=== PATIENT | female | born 1950 | race Caucasian/White ===

== ENCOUNTER 2025-01-05 12:36 | Outpatient (AMB) | payer MEDICARE, OTHER, SELFPAY ==
--- NOTE | 2025-01-05 13:13 | A.SPINEOV_ITS ---
Vital Signs 01/05/25 13:14 Height 5 ft 5 in Weight 143 lb BMI 23.8 Intake Visit Reasons: Synovial Cyst Intake Note: Ms. Murray is here today c/o a Synovial Cyst on her Lumbar spine. Director Of Personnel Required: No Allergies loperamide Allergy (Severe, Verified 01/05/25 13:15) Rash Assessment & Plan Assessment & Plan (1) Synovial cyst of lumbar facet joint: Code(s): M71.38 - Other bursal cyst, other site Category: Medical (2) Lumbar back pain with radiculopathy affecting left lower extremity: Code(s): M54.16 - Radiculopathy, lumbar region Category: Medical Plan Dear colleague Thank you for referring Ashwini Murray to the office today with a chief complaint of left sciatica. HPI: This 74-year-old female developed severe left-sided leg pain that radiates from the buttock to the lateral side of her left leg, lateral ankle. An MRI showed a synovial cyst compressing the left L5 nerve root. She had the synovial cyst aspirated on 12/06/2024 which gave her temporary relief. Then the symptoms returned to baseline. The pain affect her lifestyle. Twisting of her back produces pain in the left leg. She can no longer do a daily workouts. She is still in physical therapy, which is not helping. The right side is unaffected. No weakness. She does have numbness on the top of her foot and 1st 3 toes. The following conservative treatment options were tried without success antiinflammatories, tylenol, physical therapy, cortisone shots PMH: Hypertension, vcvh-ho-ratizacv mitral and tricuspid all valve insufficiency Medications: Losartan, amlodipine, Celebrex, gabapentin at night, Tylenol 2 tabs t.i.d. p.r.n. pain Allergies: Loperamide Social history: . Retired nurse practitioner Physical Exam: Pleasant female height 5'5 weight 143 lb. There is numbness the dorsum and 1st 3 toes of her left foot. No motor deficits. Reflexes are intact. Straight leg raise produces pain on the lateral side of her left lower leg. Radiological Studies: MRI lumbar spine done at [place] on 11/16/2024 shows moderate L4-5 spinal stenosis but more importantly there is a synovial cyst compressing the left L5 nerve root. A standing x-ray of the lumbar spine fortunately shows no gross instability . Impression/Plan: This patient is suffering from a left L5 radiculopathy caused by a synovial cyst. She tried conservative management, including aspiration of the cyst. Treatment is surgically. The options are to remove the synovial cyst with or without a lumbar fusion. The x-ray shows no gross instability and therefore I offered her a removal of the synovial cyst only. She is scheduled for 01/30/2025. Thank you for allowing me to participate in your patients care. total time spent was 50 minutes in counseling ,coordination of plan, personal review of imaging, surgical decision making and subsequent plan Chuck Conley MD, PhD Spine Fellowship Trained Neurosurgeon Director, [facility] Coding Level of Care Code New Pt Level 4 (66696) Diagnoses Synovial cyst of lumbar facet joint M71.38 Lumbar back pain with radiculopathy affecting left lower extremity M54.16
[2025-01-05 13:14] VITALS: BMI 23.8
--- OUTSIDE RECORDS SUMMARY | 2025-01-05 14:49 | XMS_ITS | Encounter Summary ---
Author Organization [facility] Address [address] [place] [address] Phone Care Team Providers Care Cabinet Worker Name Role Phone Aurora Yoo Primary Care Provider [phone] Alessandro Rice MD Primary Care Provider [phone] Encounter Details Date Type Department Care Team (Late st Contact Info) Description 02/15/2024 Procedure Pass [facility] PER[facility]IVE [facility]PT [address] [place] [id number] Social History Tobacco Use Types Packs/Day Years Used Date Smoking Tobacco: Never Smokeless Tobacco: Never Alcohol Use Standard Drinks/Week Comments Yes 0 (1 standard drink = 0.6 oz pur e alcohol) 2x weekly Education Answer Date Recorded Are you interested in more education? Not on carlos e 07/05/2022 Are you concerned about learning? Not on file 07/05/2022 No 07/05/2022 No 07/05/2022 Digital Access Answer Date Recorded No 07/26/2022 No 07/26/2022 Reliable internet access at home? Not on file 07/26/2022 Device with a working camera? Not on file Comments No Sex and Gender Information Value Date Recorded Sex Assigned at Female 08/25/2021 12:44 PM EDT Legal Sex Female 10:35 AM EDT Gender Identity Female 08/25/2021 12:44 PM EDT Sexual Orientation Straight 08/25/2021 12 :44 PM EDT documented as of this encounter Plan of Treatment Not on file documented as of this encounter Visit Diagnoses Not on filedocumented in this encounter Additional Health Concerns Assessment Noted Time PHQ-2 Depression Total Score: 0 06/10/19 23 10:06 AM EDT documented as of this encounter Care Teams Cabinet Worker Relationship Specialty Start Date End Date Aurora Yoo PA [address] [place] [address] PCP - General Unknown Provider Specialty 04/19/18 Alessandro Rice MD [address] [facility] [address] [place] [address] PCP - General Internal Medicine 03/22/24 documented as of this encounter Additional Source Comments The information contained in this document represents components of the legal health record. It is not the complete legal health record.[facility]
--- OUTSIDE RECORDS SUMMARY | 2025-01-05 14:49 | XMS_ITS | Clinical Summary ---
Author Organization [facility] Address [address] [place] [id number] Phone Care Team Providers Care Hepatologist Name Role Phone Alessandro Rice MD Primary Care Provider [phone] Allergies Active Allergy Reactions Criticality Noted Date Comments Loperamide Rash Low 05/13/2022 Medications losartan (COZAAR) 100 MG tablet Take 1 tablet by mouth daily. 1 Active ascorbic acid (REYNOLD-C ORAL) Active cholecalciferol (VITAMIN D3) 2,000 unit capsule Take 50 mcg by mouth. 1 Active VITAMIN K2 ORAL 100 mcg. Acti ve zolpidem (AMBIEN) 5 MG tablet Active psyllium husk (METAMUCIL ORAL) 2 teaspoonful. Activ e amLODIPine (NORVASC) 2.5 MG tablet Take 2.5 mg by mouth daily. Active oxyquinoline-so d.lauryl sulfat 0.025-0.01 % Gel Apply 1/2 applicator of Trimo-Tate gel twice per week. 113.4 g 3 5 Active estradioL (ESTRACE) 0.01 % (0.1 mg/gram) vaginal cream Place 1 g vaginally 3 (three) times a week. 42.5 g 1 5 09/30/19 26 Active Active Problems Problem Noted Date Diagnosed Date Diverticular disease 05/13/2022 Vaginal dryness 05/13/2022 Impaired fasting glucose 07/31/2021 Insomnia 07/31/2021 Osteoporosis 07/31/2021 Hypertension 04/17/2020 Overview (09/09/2023): Last Assessment & Plan: Of pressure slightly elevated today. We had tried increasing her medical therapy at last visit with some amlodipine which caused some edema. Patient states that her pressure is normal outside of our office notes plans on changing therapy at this time Last Assessment & Plan: Patient contacted us earlier this year with concerns over elevated blood pressure we reinstituted amlodipine on top of her losartan she is having no side effects of edema as she had in the past and her blood pressure is very well controlled on the combination of amlodipine and losartan Mitral regurgitation 04/17/2020 Overview (05/13/2022): Last Assessment & Plan: Patient with moderate mitral insufficiency no murmurs appreciated on exam though echo shows preserved left ventricular systolic function without decrease. Patient said no chest pain or pressure no shortness of breath. Will plan on repeating an echocardiogram in about a year Palpitations 04/17/2020 Overview (05/13/2022): Last Assessment & Plan: Patient complains of some palpitations. There is sinus rhythm today. They are infrequent. I asked her to contact us if the frequency increases because then we have a better chance of capturing them on a recording device. She has been told to call us if they become more frequent and we can set up an outpatient monitor. The right now the frequency is so minimal that it would be of minimal benefit of us monitoring her now Women's annual routine gynecological examination 09/15/2019 Sebaceous cyst 09/15/2019 Menopause syndrome 04/19/2018 Osteopenia 04/19/2018 Vaginal atrophy 03/12/2017 Female cystocele 03/12/2017 Encounters Date Type Department Care Team Description 11/28/2024 2:00 PM EDT Telemedicine Urogynecology and Reconstructive Pelvic Surgery [address] [facility], [address] [place] [id number] Socorro Heller, ARIELA Incomplete uterovaginal prolapse (Primary Dx); Pessary maintenance from Last 3 Months Immunizations Immunization Administration Dates Next Due INFLUENZA, SPLIT VIRUS, TRIVALENT PF 12/13/2014 INFLUENZA, SPLIT VIRUS, TRIV ALENT W/ PRESERVATIVE IM 11/22/2017 Influenza High-Dose Quadriva lent Preservative Free IM 12/11/2022,12/24/2021,12/03/2020 Influenza High-Dose Trivalen t Preservative Free IM 12/05/2018 Influenza Quadrivalent Adjuv anted Preservative Free IM 11/16/2019 Influenza Quadrivalent Prese rvative Free IM 12/10/2016 Influenza, Unspecified Formulation 12/24,12/03/2020,11/16/2019,12/10,12/13/2014 Influenza, whole 12/05/2018 Pneumococcal conjugate PCV13 12/20/2017 Pneumococcal polysaccharide PPSV23 06/14/2014 Tdap 06/14/2014 Zoster live 06/22/2013 Zoster recombinant 01/10/2020,11/01/2019 Family History Medical History Relation Comments Hypertension Father Stroke Father Hypothyroidism Mother Relation Status Comments Father Mother Social History Tobacco Use Types Packs/Day Years Used Date Smoking Tobacco: Never Smokeless Tobacco: Never Tobacco Cessation:Counseling Given: Not Answered Alcohol Use Standard Drinks/Week Comments Yes 0 [...] Orientation Straight 08/25/2021 12 :44 PM EDT Last Filed Vital Signs Vital Sign Reading Time Taken Comments Blood Pressure 100/70 03/22/2024 10:09 AM EST Pulse 78 11/30/2023 9:00 AM EDT Temperature 36.8 C (98.2 F) 03/19/2023 10:05 AM EST Respiratory Rate 16 03/19/2023 10:05 AM EST Oxygen Saturation 98% 03/19/2023 10:05 AM EST Inhaled Oxygen Concentration - - Weight 65.9 kg (145 lb 4.8 oz) 09/08/2024 8:32 A M EDT Height 165.1 cm (5' 5 ) 09/08/2024 8:32 AM EDT Body Mass Index 24.18 09/08/2024 8:32 AM EDT Plan of Treatment Health Maintenance Due Date Last Done Comments CREATININE LEVEL 1952 LIPID PANEL 1952 POTASSIUM LEVEL 1952 HEPATITIS C SCREENING 1970 MAMMOGRAM 1992 COLOGUARD 1997 COLONOSCOPY 1997 COLORECTAL CANCER SCREENING 1997 FIT TEST 1997 FOBT 1997 SIGMOIDOSCOPY 1997 VIRTUAL COLONOSCOPY 1997 OSTEOPOROSIS SCREENING INITIAL (ONE-TIME) 2017 PNEUMOCOCCAL VACCINES (50+ years) (3 of 3 - PCV20 or PCV21) 12/20/2022 12/20/2017, 06/14/2014 Adult Td,Tdap Booster 06/14/2024 06/14/2014 BLOOD PRESSURE 09/19/2024 03/22/2024 INFLUENZA VACCINE (#1) 2024 , 12/11/2022, 12/24/2021, Additional history exists COVID-19 VACCINE ( - 2024- season) 2024 12/30/2020, 04/16/2020, 03/19/2020 DEPRESSION SCREENING 07/11/2025 07/11/2024 RSV VACCINE (1 - 1-dose 75+ series) 06/22/2027 ZOSTER VACCINES Completed 01/10/2020, 04/2019, 06/22/2013 SMOKING STATUS SCREENING (Once After 26 Yrs) Completed 11/30/2023 HEPATITIS A VACCINES Aged Out No long er eligible based on patient's age to complete this topic HIB VACCINES Aged Out No longer eligi ble based on patient's age to complete this topic MENINGOCOCCAL VACCINES (ACWY) Aged Out No longer eligible based on patient's age to complete this topic MENINGOCOCCAL VACCINES (B) Aged Out N o longer eligible based on patient's age to complete this topic Medical Devices Not on file Insurance MEDICARE PART A & B delicious MEDICARE SUPPLEMENT MEDICARE PART A & B delicious MEDICARE SUPPLEMENT MEDICARE PART A & B Member Subscriber Plan / Payer ( fective 2017-) Name:Miranda Murray Member ID:[id number] Relation to Subscriber:Self Name:Miranda Murray Subscriber ID:[id number] Payer ID:[id number] Group ID:Not on file Type:Medicare Address: [employer] [facility].[address] [address] [facility] MEDICARE SUPPLEMENT MEDICARE PART A & B [facility] MEDICARE SUPPLEMENT MEDICARE PART A & B Member Subscriber Plan / Payer ( fective 2017-Present) Name:Trevor Miranda Saul Member ID:[id number] Relation to Subscriber:Self Name:Miranda Murray Saul Subscriber ID:[id number] Payer ID:[id number] Group ID:Not on file Type:Medicare Address: [employer] [address] [facility] MEDICARE SUPPLEMENT MEDICARE PART A & B [employer] MEDICARE SUPPLEMENT ([place]) [place] [address] MEDICARE PART A & B MEDICARE SUPPLEMENT MEDICARE PART A & B Room n House [employer] MEDICARE SUPPLEMENT [place] [phone] MEDICARE PART A & B [employer] MEDICARE SUPPLEMENT Care Teams Hepatologist Relationship Specialty Start Date End Date Alessandro Rice MD [address] [place] [address] PCP - General Internal Medicine 03/22/24 Additional Source Comments The information contained in this document represents components of the legal health record. It is not the complete legal health record.[facility]
== END 2025-01-05 13:49 | disposition home or self-care (01) ==
LOC: HO.HNS 12:37
PROVIDERS: PCP Internal Medicine; Visit Provider Neurological Surgery
DX: M71.38 Other bursal cyst, other site (principal); M54.16 Radiculopathy, lumbar region
CPT/HCPCS: 99204

== ENCOUNTER → 2025-01-05 12:36 | Outpatient (BNVA) | payer MEDICARE, OTHER, SELFPAY | PROVIDERS: PCP Internal Medicine; Visit Provider Neurological Surgery | DX: M54.16 Radiculopathy, lumbar region (principal); M71.38 Other bursal cyst, other site | CPT/HCPCS: 99202 ==

== ENCOUNTER 2025-01-30 09:51 | Day surgery (SDC) | payer MEDICARE, OTHER, SELFPAY ==
[2025-01-11 16:16] VITALS: BMI 23.8
--- NOTE | ~2025-01-30 | FL_ITS ---
EXAMINATION: FLUOROSCOPY GUIDANCE FOR NEEDLE PLACEMENT CLINICAL INFORMATION: Left L4-5 synovial cyst removal COMPARISON: None TECHNIQUE: Intraoperative fluoroscopic guidance provided for lumbar spine surgery. FINDINGS: Single lateral intraoperative image demonstrates instrument posterior to the L4-5 disc space level. FLUOROSCOPY TIME: 1.9 seconds DOSE AREA PRODUCT: 0.4 Gy-cm2 FL/FL guidance in OR IMPRESSION: Fluoroscopy guidance for lumbar spine surgery. Electronically signed by: Yaritza Rosales MD 01/30/2025 02:38 PM [facility] [place]
[2025-01-30 11:07] VITALS: BMI 25.1
[2025-01-30 11:16] VITALS: BP 150/72; PULSE 71; RESP 18; TEMP 36.7; O2SAT 98
[2025-01-30] MEDS: Lactated Ringers 1,000 ML 100 ML IVCONT (11:24)
--- NOTE | 2025-01-30 13:03 | MHC.SHP ---
Pre-Procedural Eval Section A - 24 Hr Update-Section A only Date of Service: 01/30/25 The patient is an INPATIENT: No Changes since office visit: No Cold of Flu in the past 2 weeks, No New Medical Problems, No Changes in Medication and No Patient answered all questions The patient has been examined within 24 hours of the surgical procedure. The History & Physical has been completed within 30 days and I have reviewed it.: No Section B - Complete if H&P > 30 days Chief Complaint: Radiculopathy, lumbar region Allergies: Allergies Allergy/AdvReac Type Severity Reaction Status Date / Time loperamide Allergy Severe Rash Verified 01/30/25 11:00 Review of Systems Sugical H&P ROS: Negative: Constitution, Cardiovascular, Respiratory, Neurological, Psychiatric, Hem-Onc, Allergic/Immunologic, Gastrointestinal, Genitourinary, Musculoskeletal, Integumentary, Endocrine and Eyes/Ears/Nose/Throat Exam Surgical H&P Exam: Normal: HEENT, Normal: Heart, Normal: Lungs, Normal: Extremities, Normal: Abdomen, Normal: Skin and Normal: Neurological (awake, alert,oriented x 3 ) Plan Diagnosis/Plan: Unchanged left L4-5 decompression, resection of synovial cyst Time Spent With Patient Time: Total time managing care of this patient today _6___ minutes.
--- NOTE | 2025-01-30 13:04 | P.DS_ITS ---
DS: Providers Provider Date of Service: 01/30/25 Date of discharge: 01/30/25 Primary care physician: Alessandro Rice MD Admitting clinician: Chuck Conley DS: Diagnosis Discharge Diagnosis (1) Lumbar back pain with radiculopathy affecting left lower extremity: Status: Acute DS: Summary Time Attestation Discharge Coordination Time (in mins): 5 Quality: Safe Use of Opioids Does Pt have an Active Cancer Diagnosis on the Problem List?: No Quality: Stroke Does the patient have a stroke diagnosis?: No Physical Exam Vital Signs: Vital Signs: Last Vital Signs Temp 98.1 F 01/30/25 11:16 Pulse 71 01/30/25 11:16 Resp 18 01/30/25 11:16 BP 150/72 H 01/30/25 11:16 Pulse Ox 98 01/30/25 11:16 O2 Del Method Room Air 01/30/25 11:16 BMI result Body Mass Index 25.1 Discharge Plan Discharge Patient Disposition: Home, Self-Care Referrals: Alessandro Rice MD [Primary Care Provider, Internal Medicine] - 1 Week Discharge Medications: Continued celecoxib 200 mg capsule 200 mg PO BID PRN (Reason: Pain) amlodipine 2.5 mg tablet 2.5 mg PO DAILY ascorbic acid (vitamin C) [Vitamin C] 500 mg Tablet 500 mg PO DAILY losartan 100 mg tablet 100 mg PO DAILY cholecalciferol (vitamin D3) [Vitamin D3] 50 mcg (2,000 unit) Capsule 50 mcg PO DAILY vitamin K2 100 mcg Capsule 100 mcg PO DAILY Discharge Orders: Discharge Order (Routine); Ordered 01/30/25 Ordered By: Joel Harris Diet: Advance to usual diet Activity on Discharge: As tolerated Activity Restrictions/Additional Instructions: After your spinal surgery we ask you to observe the following restrictions/guidelines: Activity: It is normal to feel some discomfort as you increase your activity, but that will improve with time. We ask you avoid heavy lifting or acitivities that cause pain. As a general rule, 8lbs is a safe limit for lifting right after surgery. Walk as much as you feel comfortable but not to exhaustion. You will feel extra tired the first few days after surgery. Stay well hydrated. It is OK to walk up and down stairs You may return to driving when you are off narcotics (such as vicodin, oxycodone, dilaudid, etc), and you are back to normal functional capacity. If you have any concerns please check with office before driving. Return to work is specific to each patient and each surgery, so please speak with your doctor/PA at first follow up. Please bring paperwork such as FMLA at that time if you need it filled out. Medications: For optimum pain control, it is best to start with a combination of 500 mg of Tylenol every 4 hours with 600 mg of Motrin every 8 hours, and use narcotics as needed in between for breakthrough pain. We will give you a short supply of narcotics after surgery (usually one weeks worth). If you need more please call the office but do not use more than prescribed. You will need to give our office 48 hours notice if you need narcotics refilled and we do not fill narcotics on weekends or evenings. If you are on a narcotic, it is a good idea to take a stool softener such as colace or senna to avoid constipation If you take blood thinner such as aspirin, Plavix, Coumadin, Effient, Eliquis etc for conditions such as Afib, DVT, Pulmonary embolus, coronary disease, stents etc please speak with your surgeon about specific details as to when you can resume these medications. Follow up: Please call the office, , after surgery to arrange a 3 week follow up for wound check. Wound Care: You may remove your dressing on the first day after surgery. ?You may ?leave open to air. Please do not remove the steri strips underneath. they will fall off on their own in one week. IT IS NORMAL FOR THE WOUND TO OOZE OR BE BLOODY FOR A FEW DAYS AFTER SURGERY. ?IF THIS HAPPENS JUST PLACE NEW DRESSING OVER IT TO AVOID STAINING CLOTHES. You may shower on post op day # 1 We ask that you do not let the water soak the wound. If it does get wet, just towel dry lightly. Please do not scrub your incision or place any type of chemical/ointment on the wound. No tub baths, pools or jacuzzis for one month. If you have any leaking or redness from your wound, or fevers, please call office Print Language: Hungarian
--- NOTE | 2025-01-30 13:13 | HO.ANESPROP2 ---
Documented by User: Lily Moise NP 01/24/25 09:57 HPI - Anesthesia Eval Consult details Narrative: 74 yr old female for left L4-5 Synovial Cyst Resection Follows PVC for multivalve insufficiency (mitral, tricuspid), last visit 04/2024, echo updated, no symptoms. [facility] Active Problems Active Problems: All Active Problems (Updated 01/11/25 @ 16:19 by Aurea Tuttle, RN) Lumbar back pain with radiculopathy affecting left lower extremity (Acute) Synovial cyst of lumbar facet joint (Acute) Past Medical History Medical History (Updated 01/11/25 @ 16:19 by Aurea Tuttle, NICOLETTE) Back pain Sciatica Keratosis Epidermal inclusion cyst Cystocele, midline HTN (hypertension) Vaginal atrophy Palpitations Mitral regurgitation Surgical History Surgical History (Updated 01/11/25 @ 16:18 by Aurea Tuttle, NICOLETTE) Hx of colonoscopy Social History Social History (Updated 01/11/25 @ 16:18 by Aurea Tuttle, NICOLETTE) Household Members: Spouse Housing: House Are you a primary health care specialist to a significant other at home: No Do you presently have visiting nurse or other home services: No Patient Tobacco Use Status: Never used Tobacco Use of substances other than those prescribed or required for medical reasons: No Have you been hit, kicked, punched, or otherwise hurt by someone within the past year? If so, by whom?: No Are you DNR?: No Advance Directives: No (will look for and bring dos) Advance Directives Information Provided: Yes Advance Directives on File: No Meds Allergies Allergy/AdvReac Type Severity Reaction Status Date / Time loperamide Allergy Severe Rash Verified 01/30/25 11:00 Home Medications ?Medication ?Instructions ?Recorded ?Confirmed ?Last Taken ?Type amlodipine 2.5 mg tablet 2.5 mg PO DAILY 01/11/25 01/30/25 01/30/25 History ascorbic acid (vitamin C) 500 mg 500 mg PO DAILY 01/11/25 01/30/25 Unknown History tablet (Vitamin C) celecoxib 200 mg capsule 200 mg PO BID PRN Pain 01/11/25 01/30/25 01/23/25 History cholecalciferol (vitamin D3) 50 50 mcg PO DAILY 01/11/25 01/30/25 Unknown History mcg (2,000 unit) capsule (Vitamin D3) losartan 100 mg tablet 100 mg PO DAILY 01/11/25 01/30/25 01/29/25 History vitamin K2 100 mcg capsule 100 mcg PO DAILY 01/11/25 01/30/25 01/24/25 History Exam Height,Weight and Vital Signs: Height 5 ft 5 in Weight 64.864 kg Narrative Narrative: EKG 04/2024 Ventricular Rate ECG [id number] Rate [id number] Interval [id number] Duration db74F-B Interval hk157HEm hv128C Wave Beatrice [id number] Beatrice [id number] Beatrice [id number] Interpretation Sinus bradycardia Otherwise normal ECG No previous ECGs available Confirmed by Sara ADAMS JAMES ([id number]) on 05/03/2024 12:31:54 PM ECHO 06/2024 ? Left ventricle cavity size is normal. Left ventricular systolic function is in the normal range with an ejection fraction of 55-60%. ? No regional LV wall motion abnormalities noted. ? Left ventricle wall thickness is normal. ? Right ventricle cavity is normal. Right ventricular systolic function is normal. ? Tricuspid valve leaflets exhibit normal excursion. ? The Sinus of Valsalva is dilated (3.2 cm). 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 ? Mild to moderate mitral and tricuspid insufficiency ? Compared to previous study dated 06/24/2022 ejection fraction is unchanged. Mitral and tricuspid insufficiency unchanged Documented by User: Cara Karimi DO 01/30/25 13:14 [facility] Past Medical History Medical History (Updated 01/11/25 @ 16:19 by Aurea Tuttle, NICOLETTE) Back pain Sciatica Keratosis Epidermal inclusion cyst Cystocele, midline HTN (hypertension) Vaginal atrophy Palpitations Mitral regurgitation Family History Family history of problems with anesthesia: No Surgical History Surgical History (Updated 01/11/25 @ 16:18 by Aurea Tuttle, NICOLETTE) Hx of colonoscopy History of Problems with Anesthesia: No Social History Social History (Updated 01/11/25 @ 16:18 by Aurea Tuttle RN) Household Members: Spouse Housing: House Are you a primary health care specialist to a significant other at home: No Do you presently have visiting nurse or other home services: No Patient Tobacco Use Status: Never used Tobacco Use of substances other than those prescribed or required for medical reasons: No Have you been hit, kicked, punched, or otherwise hurt by someone within the past year? If so, by whom?: No Are you DNR?: No Advance Directives: No (will look for and bring dos) Advance Directives Information Provided: Yes Advance Directives on File: No Meds Allergies Allergy/AdvReac Type Severity Reaction Status Date / Time loperamide Allergy Severe Rash Verified 01/30/25 11:00 Home Medications ?Medication ?Instructions ?Recorded ?Confirmed ?Last Taken ?Type amlodipine 2.5 mg tablet 2.5 mg PO DAILY 01/11/25 01/30/25 01/30/25 History ascorbic acid (vitamin C) 500 mg 500 mg PO DAILY 01/11/25 01/30/25 Unknown History tablet (Vitamin C) celecoxib 200 mg capsule 200 mg PO BID PRN Pain 01/11/25 01/30/25 01/23/25 History cholecalciferol (vitamin D3) 50 50 mcg PO DAILY 01/11/25 01/30/25 Unknown History mcg (2,000 unit) capsule (Vitamin D3) losartan 100 mg tablet 100 mg PO DAILY 01/11/25 01/30/25 01/29/25 History vitamin K2 100 mcg capsule 100 mcg PO DAILY 01/11/25 01/30/25 01/24/25 History Exam Exam Date and Time: 01/30/25 1313 Height,Weight and Vital Signs: Height 5 ft 5 in Weight 64.864 kg Vital Signs Temperature 98.1 F 01/30/25 11:16 Pulse Rate 71 01/30/25 11:16 Respiratory Rate 18 01/30/25 11:16 Blood Pressure 150/72 H 01/30/25 11:16 Pulse Oximetry 98 01/30/25 11:16 Oxygen Delivery Method Room Air 01/30/25 11:16 Temperature 98.1 F 01/30/25 11:16 Pulse Rate 71 01/30/25 11:16 Respiratory Rate 18 01/30/25 11:16 Blood Pressure 150/72 H 01/30/25 11:16 Pulse Oximetry 98 01/30/25 11:16 Oxygen Delivery Method Room Air 01/30/25 11:16 Airway Mallampati Class: I TM Dist: >3cm Neck ROM: Full Loose/Missing/Broken Teeth: No (patient denies any loose or broken teeth) Heart: S1S2 Lungs: CTAB Assessment and Plan Assessment Anesthesia Assessment: Anesthesia Plan Discussed and Chart Reviewed Final Anesthetic Review Family History of Problems with Anesthesia: No History of Problems with Anesthesia: No NPO: Yes ASA Class: II Final Preanesthetic Review: No Changes in Pt Med Stat, Meds/Allgs Chart Reviewed, Consent Obtained/Reviewed and Anes Risks/Benef Reviewed Patient Risk: Low Procedure Risk: Low Anesthetic Plan Anesthetic Plan: GA and Agree w/ Assess. and Plan Disposition: Standard PACU
--- NOTE | 2025-01-30 14:46 | P.OP_ITS ---
Operative Note Operative Note Date of Service: 01/30/25 Narrative: Preoperative Diagnosis: Extradural benign mass (synovial cyst) compressing the left L5 nerve root Operation: L4-5 Laminotomy for removal of extradural benign mass with use of microscope Consent Informed Consent was obtained for this operation. I have explained the nature, purpose and benefits of the operation. I have discussed the risks and benefit of the operation including possible complications or adverse events with patient/family. Alternative(s) were discussed with the patient with their relative benefits and risks as well as the consequences of not accepting the operation were included in obtaining consent. Surgeon: MARITZA FREGOSO MD, PHD Procedure Assisted By: Joel engel Description of Procedure This 74-year-old female is suffering from a left L5 lumbar radiculopathy due to a extradural benign mass compressing the L5 nerve root. The patient was offered a removal of the mass to decompress the nervous structure. The procedure complications were explained. The patient was consented. The patient was brought to the operating room and endotracheally intubated. The patient was turned in prone position on the Onesimo frame. Prep and drape was done followed by timeout. Physician hotel administrative assistant provided access. A mid lumbar incision was made followed by release of the paravertebral muscle on the left side to expose the L4-5 lamina and facet joint. An intraoperative x-ray was obtained to confirm the correct level. The microscope was brought in. I took over the procedure. The high-speed drill was used to do a L4-5 laminotomy. The flavum ligament was opened to expose the underlying thecal sac and start of the L5 nerve root. A large cystic mass was identified and dissected from the L5 nerve root. When the mass was completely relieved from the L5 nerve root I removed it in toto. Most likely we were dealing with a synovial cyst. A long the nerve root could be easily passed, a sign of adequate decompression of the nerve root . The microscope was removed. Hemostasis was done. Incision was closed in 2 layers. Steri-Strips were used to approximate incision. An OpSite with Tegaderm was used to cover the incision. All sponge needle counts were correct. Patient was extubated and transported in stable is to recovery room. Anesthesia: General Estimated Blood Loss (ml): Minimal Duration of Surgery: Under 60 Minutes Postoperative Plan: Discharge to home
[2025-01-30 15:08] VITALS: BP 155/71; PULSE 65; RESP 13; TEMP 36.6; O2SAT 100
[2025-01-30 15:13] VITALS: BP 134/62; PULSE 62; RESP 10; O2SAT 100
[2025-01-30 15:18] VITALS: BP 142/70; PULSE 59; RESP 8; O2SAT 100
[2025-01-30 15:23] VITALS: BP 142/70; PULSE 58; RESP 9; O2SAT 100
[2025-01-30 15:38] VITALS: BP 153/76; PULSE 68; RESP 12; TEMP 36.6; O2SAT 99
== END 2025-01-30 16:10 | disposition home or self-care (01) ==
PROVIDERS: PCP Internal Medicine; Visit Provider Neurological Surgery
PROC: (CPT 63267; principal; 2025-01-30 13:00)
DX: M71.38 Other bursal cyst, other site (principal); M54.16 Radiculopathy, lumbar region; R20.0 Anesthesia of skin; M54.32 Sciatica, left side; I10 Essential (primary) hypertension; I34.0 Nonrheumatic mitral (valve) insufficiency; I07.1 Rheumatic tricuspid insufficiency; Z79.899 Other long term (current) drug therapy; Z88.8 Allergy status to other drugs, medicaments and biological substances
CPT/HCPCS: 63267; J0131; J0690; J1100; J1885; J2003; J2371; J2405; J2704; J3010

== ENCOUNTER → 2025-01-30 09:51 | Outpatient (BNV) | payer MEDICARE, OTHER, SELFPAY | PROVIDERS: PCP Internal Medicine; Visit Provider Neurological Surgery | DX: M54.16 Radiculopathy, lumbar region (principal) | CPT/HCPCS: 63267; 99499 ==

== ENCOUNTER 2025-02-20 14:29 | Outpatient (AMB) | payer MEDICARE, OTHER, SELFPAY ==
--- NOTE | 2025-02-20 13:35 | A.SPINEOV_ITS ---
Intake Visit Reasons: 1st post op Intake Note: Ms. Murray is here today for her 1st post op. Sweeping Compound Blender Required: No Allergies loperamide Allergy (Severe, Verified 02/20/25 14:33) Rash Assessment & Plan Assessment & Plan (1) Status post lumbar spine surgery for decompression of spinal cord: Code(s): Z98.890 - Other specified postprocedural states Category: Medical Plan Operation: L4-5 Laminotomy for removal of extradural benign mass Miranda is a pleasant 74 year old female who comes in today for her 1st postoperative visit after having the above mentioned procedure completed by Dr. Conley. To recap before surgery she was evaluated in clinic and reported severe left-sided leg pain that radiates from the buttock to the lateral side of her left leg and her lateral ankle. Doing well from his surgery but still has some residual pain which is similar to the pain she had preoperatively. She asked several questions regarding the postoperative healing course, all of which I answered to the best of my ability. No new neurological deficits. The patient ambulates well and rises from a seated position without difficulty. She uses no assistive devices to ambulate. Her posterior incision site is closed and well healing. With no signs of erythema or drainage. I would like to follow up with Miranda again in 6 weeks for her 2nd postoperative visit. Celestine Conley MD,PhD [facility] Coding Level of Care Code Global (06318) Diagnoses Status post lumbar spine surgery for decompression of spinal cord Z98.890
--- OUTSIDE RECORDS SUMMARY | 2025-02-20 15:46 | XMS_ITS | Clinical Summary ---
Author Organization [facility] Address [address] [place] [address] Phone Care Team Providers Care Head Of Art Name Role Phone Alessandro Rice MD Primary Care Provider [phone] Allergies Active Allergy Reactions Criticality Noted Date Comments Loperamide Itching 05/13/2022 Other Reaction(s): Rash/Dermatitis Medications vitamin K2, MK-4, 100 mcg tablet Take by mouth daily. Active ascorbic acid, vitamin C, 500 mg capsule Take by mouth daily. Active cholecalciferol (VITAMIN D-3) 50 mcg (2,000 unit) tablet Take 1 tablet (2,000 Units total) by mouth 1 (one) time each day. Active estradioL (ESTRACE) 0.01 % (0.1 mg/gram) vaginal cream Insert 2 g into the vagina 1 (one) time per week. Active psyllium husk (METAMUCIL ORAL) 2 tsp daily A ctive amLODIPine (NORVASC) 2.5 mg tablet Take 1 tablet (2.5 mg total) by mouth 1 (one) time each day. 90 tablet 3 07/27/2024 Active losartan (COZAAR) 100 mg tabletIndications :Essential (primary) hypertension TAKE 1 TABLET BY MOUTH EVERY DAY 90 tablet 3 10/25/2024 Active Active Problems Problem Noted Date Diagnosed Date Hypertension 04/17/2020 Overview (04/05/2024): Last Assessment & Plan: Patient contacted us earlier this year with concerns over elevated blood pressure we reinstituted amlodipine on top of her losartan she is having no side effects of edema as she had in the past and her blood pressure is very well controlled on the combination of amlodipine and losartan Assessment & Plan (05/03/2024 12:26 PM EST): Blood pressure is borderline elevated today but she brought a list of pressures with her for the majority of the time her systolic pressures less than 120 systolic. I am not can increase the medications at this time Mitral regurgitation 04/17/2020 Overview (04/05/2024): Last Assessment & Plan: Patient with a history of mitral insufficiency. Last time we evaluated her left ventricular end-diastolic and end-systolic Eimers are normal and her ejection fraction was preserved. Will plan on repeating an echocardiogram to assess the severity of the mitral insufficiency and any underlying cardiac pathology secondary to it . She has no evidence of volume overload Assessment & Plan (05/03/2024 12:26 PM EST): Patient with moderate to mildly severe mitral insufficiency with no evidence of LV systolic dysfunction or increasing the ventricular cavitary size. Went over in detail with her the signs that were looking for that would make us consider repairing her valve. They would be worsening ejection fraction of an EF less than 60% or dilatation of left ventricle with any significant increased end-diastolic volume. Or significant symptom progression. At this point she has not had any symptoms. Will repeat an echocardiogram and then forward her the results. She is to call us if she develops any symptomatic dyspnea or edema Orders: Transthoracic echocardiogram (TTE) complete with PRN contrast, bubble, strain, and 3D order panel; Future Palpitations 04/17/2020 Overview (04/05/2024): Last Assessment & Plan: Patient is still bothered by palpitations we will schedule her for a 30-day recorder since they are very variable. I told her I cannot tell her what she is experiencing until I can see it on paper. So with a 30 Day Loop recorder has been ordered for the patient Cystocele, midline 03/12/2017 Epidermal inclusion cyst 03/12/2017 Keratosis 03/12/2017 Vaginal atrophy 03/12/2017 Social History Tobacco Use Types Packs/Day Years Used Date Smoking Tobacco: Never Smokeless Tobacco: Never Alcohol Use Standard Drinks/Week Comments Not Currently 0 (1 standard drink = 0.6 oz pur e alcohol) Comments Unknown Sex and Gender Information Value Date Recorded Sex Assigned at Not on file Legal Sex Female 7:05 PM EST Gender Identity Not on file Sexual Orientation Not on file Last Filed Vital Signs Vital Sign Reading Time Taken Comments Blood Pressure 150/70 07/19/2024 10:20 AM EDT Pulse 57 05/03/2024 11:21 AM EST Temperature - - Respiratory Rate - - Oxygen Saturation 97% 05/03/2024 11:21 AM EST Inhaled Oxygen Concentration - - Weight 65.8 kg (145 lb) 07/19/2024 10:20 AM EDT Height 165.1 cm (5' 5 ) 07/19/2024 10:20 AM EDT Body Mass Index 24.13 07/19/2024 10:20 AM EDT Plan of Treatment Health Maintenance Due Date Last Done Comments Colorectal Cancer Screening: Colonoscopy 1950 Breast Cancer Screening 02/18/2020 02/17/2018 Cholesterol Screening (Lipid Panel) 02/07/2022 Falls Risk Assessment 02/07/2022 Hepatitis C Screening 02/07/2022 Osteoporosis Screening (Bone Density Screening) 02/07/2022 Social Influencers of Health Screening 02/07/2022 Hypertension/CHF/CAD Annual BMP Blood Test 02/08/2022 Pneumococcal Vaccine: 50+ Years (3 of 3 - PCV20 or PCV21) 12/20/2022 12/20/2017, 06/14/2014 Medicare Annual Wellness Visit 08/04/2023 08/03/2022 Depression Screening 03/01/2024 DTaP,Tdap,and Td Vaccines (2 - Td or Tdap) 06/14/2024 06/14/2014 COVID-19 Vaccine (4 - 2024- season) 2024 12/30/2020, 04/16/2020, 03/19/2020 Influenza Vaccine (#1) 2024 , 12/11/2022, 12/24/2021, Additional history exists RSV Immunization Adult Patients (1 - 1-dose 75+ series) 06/22/2027 Zoster Vaccines Completed 01/10/2020, 04/2019, 06/22/2013 HIB Vaccines Aged Out No longer eligi ble based on patient's age to complete this topic HPV Vaccines Aged Out No longer eligi ble based on patient's age to complete this topic Hepatitis A Vaccines Aged Out No long er eligible based on patient's age to complete this topic Hepatitis B Vaccines Aged Out No long er eligible based on patient's age to complete this topic IPV Vaccines Aged Out No longer eligi ble based on patient's age to complete this topic MMR Vaccines Aged Out No longer eligi ble based on patient's age to complete this topic Meningococcal ACWY Vaccine Aged Out N o longer eligible based on patient's age to complete this topic Meningococcal B Vaccine Aged Out No l onger eligible based on patient's age to complete this topic RSV Immunization Patients Under 20 months Aged Out No longer eligible based on patient's age to complete this topic Varicella Vaccines Aged Out No longer eligible based on patient's age to complete this topic Procedures Procedure Name Priority Date/Time Associated Diagnosis Comments [facility] SCREENING DIGITAL Routine 02/17/2018 5:09 PM EST Encounter for screening mammogram for malignant neoplasm of breast from Last 3 Months or Most Recently Relevant to Health Maintenance Results * FATUMA SCREENING DIGITAL (02/17/2018 5:09 PM EST) Anatomical Region Laterality Modality Mammography 02/17/2018 10:4 0 AM EST Narrative 02/17/2018 5:09 PM EST [facility] Diagnostic Imaging Department [address] [place] [address] Patient: MIRANDA MURRAY D.O.B./Age/Sex: 1950 - 67 - F Unit#: [id number] Location/Status: SPDIMAM/REG CLI Mnemonic[facility] Ordering Physician: ANTONI GILMAN MD Fatuma Screening Digital - 02/17/18 - 1108 History: Bilateral breast cancer screening. Technique: Digital mammography. Conventional CC and MLO projections with tomosynthesis MLO views and computer aided detection. Findings: Comparison made with previous mammograms from 12/23/2015, 12/11/2013, 12/02/2011 and dating back to 04/16/2006. Breast tissue is diffusely dense, which lowers the sensitivity of mammography (category d density) bilaterally. Faint microcalcifications are identified. No concerning change. There is no suspicious group of microcalcification, suspicious mass, architectural distortion or suspicious change in breast density. Impression: Diffusely dense breast tissue, decreasing sensitivity of mammography. No mammographic evidence of malignancy. BIRADS Category 2: Benign Findings, 3342F 63383, 17693 A negative mammogram in the face of a suspicious abnormality does not exclude the possibility of malignancy nor alter the indications for biopsy. Note: Patient information entered into a reminder system with a target due date for the next mammogram; PQRI II 7097F Dictating Physician: JONN COLEMAN MD Electronically Signed by: JONN COLEMAN MD Dic Date/Time: 02/17/181707 Sign date/Time: 02/17/181708 Procedure Note Jonn Coleman MD - 02/17/2022 [facility] Diagnostic Imaging Department [address] [place] [address] Patient: MIRANDA MURRAY /Age/Sex: 1950 - 67 - F Unit#: [id number] Location/Status: SPDIMAM/REG CLI Mnemonic/Ordering Site: [facility] Ordering Physician: ANTONI GILMAN MD Fatuma Screening Digital - 02/17/18 - 1108 History: Bilateral breast cancer screening. Technique: Digital mammography. Conventional CC and MLO projections with tomosynthesis MLO views and computer aided detection. Findings: Comparison made with previous mammograms from 12/23/2015, 12/11/2013, 12/02/2011 and dating back to 04/16/2006. Breast tissue is diffusely dense, which lowers the sensitivity ofmammography (category d density) bilaterally. Faint microcalcifications areidentified. No concerning change. There is no suspicious group of microcalcification, suspicious mass, architectural distortion or suspicious change in breast density. Impression: Diffusely dense breast tissue, decreasing sensitivity of mammography. No mammographic evidence of malignancy. BIRADS Category 2: Benign Findings, 3342F 28350, 18258 A negative mammogram in the face of a suspicious abnormality does notexclude the possibility of malignancy nor alter the indications for biopsy. Note: Patient information entered into a reminder system with a targetdue date for the next mammogram; PQRI II 7091F Dictating Physician: JONN COLEMAN MD Electronically Signed by: JONN COLEMAN MD Dic Date/Time: 02/17/181707 Sign date/Time: 02/17/181708 Antoni Gilman MD IMG BI PROCEDURES Final Result from Last 3 Months or Most Recently Relevant to Health Maintenance [facility] Care Teams Head Of Art Relationship Specialty Start Date End Date Alessandro Rice MD [address] Nickolas Barakat [place] PCP - General Internal Medicine 05/03/24
--- OUTSIDE RECORDS SUMMARY | 2025-02-20 15:46 | XMS_ITS | Encounter Summary ---
Author Organization [facility] Address [address] [place] [id number] Phone Care Team Providers Care Material Damage Appraiser Name Role Phone Aurora Yoo Primary Care Provider [phone] Alessandro Rice MD Primary Care Provider [phone] Encounter Details Date Type Department Care Team (Late st Contact Info) Description 02/15/2024 Procedure Pass [facility] PERIOPERATIVE DEPT [address] [place] [address] Social History Tobacco Use Types Packs/Day Years [...] documented as of this encounter Care Teams Material Damage Appraiser Relationship Specialty Start Date End Date Aurora Yoo PA [address] [place] [address] PCP - General Unknown Provider Specialty 04/19/18 Alessandro Rice MD [address] [facility] [address] [place] [address] PCP - General Internal Medicine 03/22/24 documented as of this encounter Additional Source Comments The information contained in this document represents components of the legal health record. It is not the complete legal health record.[facility]
--- OUTSIDE RECORDS SUMMARY | 2025-02-20 15:46 | XMS_ITS | Clinical Summary ---
Author Organization [facility] Address [address] [place] [id number] Phone Care Team Providers Care [employer] Supervisor Name Role Phone Alessandro Rice MD Primary Care Provider [phone] Allergies Active Allergy Reactions Criticality Noted Date [...] Take 2.5 mg by mouth daily. Active estradioL (ESTRACE) 0.01 % (0.1 mg/gram) vaginal cream Place 1 g vaginally 3 (three) times a week. 42.5 g 1 5 09/30/19 26 Active oxyquinoline-so d.lauryl sulfat 0.025-0.01 % Gel Apply 1/2 applicator of Trimo-Tate gel twice per week. 113.4 g 3 5 Active Active Problems Problem Noted Date Diagnosed [...] Encounters Date Type Department Care Team Description 01/18/2025 Refill [facility] [address] [place] [address], [address] Floor, [address] [place] [address] Anna Liu RN Medication Refill 11/28/2024 2:00 PM EDT Telemedicine [facility] [address] [facility], [address] [place] [address] Socorro Heller CNP Incomplete uterovaginal prolapse (Primary Dx); Pessary maintenance [...] file Insurance MEDICARE PART A & B [facility] MEDICARE SUPPLEMENT EMILY EUGENE [id number] MEDICARE PART A & B [facility] [employer] MEDICARE SUPPLEMENT MEDICARE PART A & B [facility] MEDICARE SUPPLEMENT MEDICARE PART A & [place] [id number] MEDICARE PART A & B [facility] [employer] MEDICARE SUPPLEMENT MEDICARE PART A & B [employer] MEDICARE SUPPLEMENT MEDICARE PART A & B [employer] MEDICARE SUPPLEMENT MEDICARE PART A & B [employer] MEDICARE SUPPLEMENT MEDICARE PART A & B [employer] MEDICARE SUPPLEMENT EMILY EUGENE [id number] Care Teams [employer] Supervisor Relationship Specialty Start Date End Date Alessandro Rice MD [address] [place] [address] PCP - General Internal Medicine 03/22/24 Additional Source Comments The information contained in this document represents components of the legal health record. It is not the complete legal health record.[facility]
== END 2025-02-20 14:59 | disposition home or self-care (01) ==
LOC: HO.HNS 14:30
PROVIDERS: PCP Internal Medicine; Visit Provider Physician Assistant
DX: Z98.890 Other specified postprocedural states (principal)
CPT/HCPCS: 99024

== ENCOUNTER → 2025-02-20 14:29 | Outpatient (BNVA) | payer MEDICARE, OTHER, SELFPAY | PROVIDERS: PCP Internal Medicine; Visit Provider Physician Assistant | DX: Z48.811 Encounter for surgical aftercare following surgery on the nervous system (principal) | CPT/HCPCS: 99212 ==